=== PATIENT | male | born 1960 | race Caucasian/White ===

== ENCOUNTER 2017-01-29 23:31 | Inpatient (IN) | payer OTHER ==
[~2017-01-29] VITALS: Ht 182.9 cm; Wt 131.0 kg
[2017-01-30] MEDS ORDERED: LISINOPRIL-HCT1 EAC1 PO (02:34)
[2017-01-30] MEDS ORDERED: ZYLOPRIM 100 M100 MG PO (02:35)
[2017-01-30 04:14] LABS: BUN/CREATININE RATIO 23 (0-10)
[2017-02-01 04:46] LABS: HEMOGLOBIN 13.3 gm/dl (14.0-17.5); RED BLOOD COUNT 4.26 M/UL (4.20-5.50); WHITE BLOOD COUNT 5.5 K/UL (4.5-11.0)
[2017-02-02 05:35] LABS: BUN/CREATININE RATIO 17 (0-10)
[2017-02-03 05:06] LABS: BUN/CREATININE RATIO 15 (0-10)
[2017-02-04 04:37] LABS: HEMOGLOBIN 13.5 gm/dl (14.0-17.5); RED BLOOD COUNT 4.4 M/UL (4.20-5.50)
[2017-02-04 04:44] LABS: WHITE BLOOD COUNT 7.2 K/UL (4.5-11.0)
[2017-02-04 05:00] LABS: BUN/CREATININE RATIO 13 (0-10)
[2017-02-04] MEDS ORDERED: NOVOLOG 10100 UNITS1 SQ (18:57)
[2017-02-04] MEDS ORDERED: TRICOR 145 MG145 MG PO (18:57)
[2017-02-04] MEDS ORDERED: PRAVASTATIN SOD20 MG PO (18:58)
[2017-02-04] MEDS ORDERED: LEVEMIR100 UNIT/1 SQ (18:58)
== END 2017-02-04 19:38 | disposition home or self-care (01) | DRG 683 ==
LOC: CCU 23:31 → MED SURG 4 01-30 02:24
PROVIDERS: Hospitalist; Internal Medicine; ADMIT Internal Medicine
DX: N17.9 Acute kidney failure, unspecified (principal); E87.1 Hypo-osmolality and hyponatremia; E11.65 Type 2 diabetes mellitus with hyperglycemia; E86.0 Dehydration; I12.9 Hypertensive chronic kidney disease with stage 1 through stage 4 chronic kidney disease, or unspecified chronic kidney disease; N18.9 Chronic kidney disease, unspecified; E78.1 Pure hyperglyceridemia; D64.9 Anemia, unspecified; K57.90 Diverticulosis of intestine, part unspecified, without perforation or abscess without bleeding; K76.0 Fatty (change of) liver, not elsewhere classified; H04.123 Dry eye syndrome of bilateral lacrimal glands; Z72.89 Other problems related to lifestyle; Z79.899 Other long term (current) drug therapy; Z83.3 Family history of diabetes mellitus; Z82.49 Family history of ischemic heart disease and other diseases of the circulatory system
CPT/HCPCS: 36415; 80048; 80053; 80061; 81001; 82150; 82550; 82553; 82947; 82962; 83036; 83690; 84153; 84443; 84484; 84550; 85027; 87086; J1815; J2550; J7030; J7050; Q9962